=== PATIENT | female | born 1985 | race Caucasian/White ===

== ENCOUNTER 2016-12-06 12:58 | Emergency (ER) | payer OTHER ==
[2016-12-06 13:02] VITALS: BMI 40.3
[2016-12-06 14:12] VITALS: BP 122/74; PULSE 96; TEMP 98.4
[2016-12-06 14:59] LABS: MCH 30.3 pg (25.7-33.7); MCHC 33.6 g/dl (32.0-36.0); MEAN CELL VOLUME 90.1 fl (80-96); MEAN PLT VOLUME 11.3 fl (7.5-11.1); PLATELET COUNT 183 K/MM3 (134-434); RDW 14.6 % (11.6-15.6); WHITE BLOOD COUNT 10.8 K/mm3 (4.0-10.0)
== END 2016-12-06 15:10 | disposition home or self-care (01) ==
LOC: JER 12:58
DX: O26.893 Other specified pregnancy related conditions, third trimester (principal); R10.2 Pelvic and perineal pain; Z3A.33 33 weeks gestation of pregnancy
CPT/HCPCS: 36415; 85027; 99281-25

== ENCOUNTER 2017-01-11 05:00 | Inpatient (IN) | payer OTHER ==
[2017-01-11 06:18] LABS: BASOPHIL 0.2 % (0-2.0); EOSINOPHIL 1.3 % (0-4.5); MCH 29.4 pg (25.7-33.7); MEAN CELL VOLUME 89.2 fl (80-96); MEAN PLT VOLUME 11.6 fl (7.5-11.1); NEUTROPHILS 76.7 % (42.8-82.8); PLATELET COUNT 184 K/MM3 (134-434); RDW 14.4 % (11.6-15.6); WHITE BLOOD COUNT 12.1 K/mm3 (4.0-10.0)
[2017-01-11 06:34] LABS: INR 0.98 (0.82-1.09); PROTHROMBIN TIME (PATIENT) 10.8 SEC (9.98-11.88)
[2017-01-11 06:37] LABS: ACTIVATED PTT 27.3 SECONDS (26.9-34.4)
[2017-01-11 06:40] LABS: CALCIUM 8.9 mg/dL (8.5-10.1); CREATININE 0.5 mg/dL (0.55-1.02)
[2017-01-11] MEDS: DEXTROSE 5%-LACTATED RINGERS 1,000 ML IV SCH (07:00)
[2017-01-11 07:17] LABS: HIV 1 & 2 AB NEGATIVE; HIV 1 AGp24 NEGATIVE
[2017-01-11 07:19] VITALS: BMI 40.3
[2017-01-11] MEDS ORDERED: TUBERCULIN PPD 5 TU/0.1ML SYRINGE (IN PATIENT USE ONLY) ID ONE (08:30)
[2017-01-11] MEDS ORDERED: DINOPROSTONE 10 MG VAGINAL SUPPOSITORY VG ONE (10:43)
--- NOTE | 2017-01-11 10:43 | PN ---
Ante-Partal Exam - Subjective Subjective: Came to evaluate patient and start cervidil induction for Dr. Paul. 31 y/o with SIUP at 40.2 weeks here with SROM. Pt tolerating contractions - rare mild contractions, continues to leak fluid. Vital Signs: Vital Signs Temperature 98.2 F 01/11/17 10:00 Pulse Rate 82 01/11/17 10:00 Respiratory Rate 20 01/11/17 10:00 Blood Pressure 108/51 01/11/17 10:00 O2 Sat by Pulse Oximetry (%) Bleeding: No Headache: No Visual changes: No Right upper quadrant pain: No Pain (scale 1-10): 2 - Contractions Contractions: Yes Regularity: Irregular Intensity: Mild Monitor Mode: External - Exam during Labor Heart Rate: 125 Variability: Moderate Category: I Monitor Accelerations: Present Monitor Decelerations: None Exam: Vaginal Dilatation (cm): 3 Effacement (%): 70 Amniotic Membrane Status: Ruptured Nitrazine Test: Positive Amniotic Fluid: Clear Presentation: Vertex Station: -2 - Assessment/Plan Assessment/Plan: 31 y/o with SROM, for labor augmentation - FHTS cat 1 - cervidil placed at this time, for removal in 12 hours or earlier if goes into active labor - GBS negative
[2017-01-11] MEDS ORDERED: BUTORPHANOL TARTRATE 1 MG/ML VIAL IVPB ONE ×2 (10:44→18:30)
[2017-01-11] MEDS ORDERED: ELECTROLYTE-148 SOLN 500 ML IV ONE (20:30)
--- NOTE | 2017-01-11 20:30 | HP ---
Past Medical History - Admission Chief Complaint: Labor pain History of Present Illness: 31 yo @ 38.6 weeks gestation, EDC 01/19/17, admitted for rupture of membrane. She denies any vaginal bleeding. History Source: Patient Limitations to Obtaining History: No Limitations - Past Medical History ...: 4 ...Para: 2 ...Term: 2 ...Spon : 1 ...LMP: 04/04/16 ... Weeks Gestation by Dates: 40.2 ...EDC by Dates: 01/09/17 ...EDC by Sono: 01/19/17 - Past Surgical History Past Surgical History: Yes: None Hx Myomectomy: No Hx Transabdominal Cerclage: No - Smoking History Smoking history: Never smoked Have you smoked in the past 12 months: No Aproximately how many cigarettes per day: 1 - Alcohol/Substance Use Hx Alcohol Use: No - Social History Usual Living Arrangement: Yes: With Significant Other History of Recent Travel: No Home Medications - Allergies Allergies/Adverse Reactions: Allergies Allergy/AdvReac Type Severity Reaction Status Date / Time ceftriaxone sodium Allergy Severe Hives Verified 01/11/17 05:57 [From Rocephin] nut Allergy Severe Hives Uncoded 01/11/17 05:57 sunflower seeds Allergy Severe Hives Uncoded 01/11/17 05:57 - Home Medications Home Medications: Ambulatory Orders Pnv95/Iron Fum/Folic Acid [ Caplet] 1 each PO DAILY 08/21/16 Family Disease History - Family Disease History Family History: Unremarkable Review of Systems - Review of Systems Constitutional: reports: No Symptoms Eyes: reports: No Symptoms HENT: reports: No Symptoms Neck: reports: No Symptoms Cardiovascular: reports: No Symptoms Respiratory: reports: No Symptoms Gastrointestinal: reports: No Symptoms Genitourinary: reports: Pain Breasts: reports: No Symptoms Reported Musculoskeletal: reports: No Symptoms Integumentary: reports: No Symptoms Neurological: reports: No Symptoms Endocrine: reports: No Symptoms Hematology/Lymphatic: reports: No Symptoms Psychiatric: reports: No Symptoms Pain Intensity: 3 Physical Exam - Maternity Vital Signs: Vital Signs Temperature 98.7 F 01/11/17 18:00 Pulse Rate 71 01/11/17 18:00 Respiratory Rate 18 01/11/17 18:00 Blood Pressure 131/72 01/11/17 18:00 O2 Sat by Pulse Oximetry (%) Constitutional: Yes: Well Nourished Eyes: Yes: Conjunctiva Clear HENT: Yes: Atraumatic Neck: Yes: Supple, Trachea Midline Cardiovascular: Yes: Regular Rate and Rhythm Lungs: Clear to auscultation - Abdominal Exam/OB Number of Fetuses: Single Presentation: Vertex Contractions: Yes Regularity: Irregular Intensity: Mild - Vaginal Exam/OB Vaginal Bleediing: No Dilatation (cm): 3 Effacement (%): 70 Amniotic Membrane Status: Ruptured - Labs Lab Results: CBC, BMP 01/11/17 05:50 01/11/17 05:50 Problem List - Problems (1) Rupture of membranes with clear amniotic fluid Code(s): O42.019 - PRETRM GERARDO ROM, ONSET LABOR W/N 24 HOURS OF RUPT, UNSP TRI Assessment/Plan Spontaneous rupture of membrane Admit to L&D Cervidil induction
--- NOTE | 2017-01-11 20:41 | PN ---
Progress Note (short form) - Note Progress Note: Patient re-evaluated She c/o contractions pain; moderate discomfort. FHR : reactive [place] : + irregular contractions VE : / -2 A/P : Active Labor Epidural anesthesia Consider Pitocin augmentation Anticipate Problem List - Problems (1) Rupture of membranes with clear amniotic fluid Code(s): O42.019 - PRETRM GERARDO ROM, ONSET LABOR W/N 24 HOURS OF RUPT, UNSP TRI
[2017-01-11] MEDS ORDERED: OXYTOCIN 15 UNITS/ LR 250 ML 250 ML IVPB SCH (20:45)
[2017-01-11] MEDS ORDERED: WITCH HAZEL 50% (TUCKS) 40 PAD/JAR PAD TP PRN (21:49)
[2017-01-11] MEDS ORDERED: BENZOCAINE 28 GM HEMORRHOIDAL OINTMENT TP PRN (21:49)
[2017-01-11] MEDS ORDERED: METHYLERGONOVINE MALEATE 0.2 MG/1 ML AMP IM PRN (21:49)
[2017-01-11] MEDS ORDERED: BENZOCAINE 20% 57 GM BOTTLE TP PRN (21:49)
[2017-01-11] MEDS ORDERED: BISACODYL 10 MG SUPP.RECT RC PRN (21:49)
--- NOTE | 2017-01-11 21:59 | PN ---
Delivery - Delivery Vaginal Delivery: Spontaneous Type of Anesthesia: Epidural Episiotomy/Laceration: 1st degree EBL (cc): 300 Delivery, Single - [place] Feeding Plan Initial Plan: Elected not to breastfeed exclusively throughout hospitalization Remarks - Remarks Remarks: Normal spontaneous vaginal delivery of a live infant boy. Nose / Oropharynx suctioned @ perineum. Nuchal cord x 1 cut and clamped Baby handed to nurse. Placenta expelled spontaneously intact. Right labial laceration repaired with 2.0 Biosyn.
[2017-01-11] MEDS ORDERED: D5W-LR W/ 20 UNITS OXYTOCIN 1,000 ML IV SCH (22:00)
--- NOTE | 2017-01-11 22:04 | DS ---
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 Signs: Vital Signs Temperature 98.6 F 01/11/17 20:00 Pulse Rate 80 01/11/17 20:00 Respiratory Rate 18 01/11/17 20:00 Blood Pressure 127/66 01/11/17 20:00 O2 Sat by Pulse Oximetry (%) Constitutional: Yes: Well Nourished Eyes: Yes: Conjunctiva Clear HENT: Yes: Atraumatic Neck: Yes: Supple, Trachea Midline Cardiovascular: Yes: Regular Rate and Rhythm Respiratory: Yes: Regular, CTA Bilaterally Gastrointestinal: Yes: Normal Bowel Sounds Pelvis: Yes: WNL External Genitalia: Yes: Normal Vaginal Exam: Yes: Normal Cervix: Yes: Normal Uterus: Yes: Firm ....Post : Yes: Uterus firm, Large lochia rubra Neurological: Yes: Alert, Oriented ...Motor Strength: WNL Psychiatric: Yes: Alert, Oriented Labs: CBC, BMP 01/11/17 05:50 01/11/17 05:50 Delivery - Delivery Vaginal Delivery: Spontaneous Type of Anesthesia: Epidural Episiotomy/Laceration: 1st degree EBL (cc): 300 Delivery, Single - Feeding Plan Initial Plan: Elected not to breastfeed exclusively throughout hospitalization Discharge Summary Reason For Visit: LABOR Current Active Problems Rupture of membranes with clear amniotic fluid (Acute) Procedures: Principal: Normal spontaneous vaginal delivery Hospital Course: Routine care Condition: Good - Instructions Diet, Activity, Other Instructions: Regular diet No sexual intercourse, no douching x 6 weeks. F/U with MD in 6 weeks Referrals: Ivelisse Paul MD [Staff Physician] - Disposition: HOME - Home Medications Comprehensive Discharge Medication List: Ambulatory Orders Pnv95/Iron Fum/Folic Acid [ Caplet] 1 each PO DAILY 08/21/16
[2017-01-12] MEDS: ACETAMINOPHEN 325 MG TABLET (FP) PO PRN ×3 (02:52→21:53)
[2017-01-12] MEDS: IBUPROFEN 600 MG TABLET (FP) PO PRN ×3 (02:53→21:54)
--- NOTE | 2017-01-12 07:58 | PN ---
Post Progress Note - Subjective Subjective: 31 yo Para 3, status normal spontaneous vaginal delivery, seen and evaluated. Doing well. Type of Delivery: Vital Signs: Vital Signs Temperature 98.1 F 01/12/17 05:45 Pulse Rate 79 01/12/17 05:45 Respiratory Rate 18 01/12/17 05:45 Blood Pressure 121/70 01/12/17 05:45 O2 Sat by Pulse Oximetry (%) 99 01/11/17 21:45 Breast Exam: Yes: Soft Uterus: Yes: Fundus Firm Abdomen/GI: Yes: Abdomen soft, Tolerating PO Lochia: Yes: Rubra Lochia, amount: Moderate Extremities: Yes: Calves non-tender Perineum: Yes: Laceration (healing) Activity: Ambulating - Labs Labs: CBC WBC 12.1 K/mm3 (4.0-10.0) H 01/11/17 05:50 RBC 4.17 M/mm3 (3.60-5.2) 01/11/17 05:50 Hgb 12.3 GM/dL (10.7-15.3) 01/11/17 05:50 Hct 37.2 % (32.4-45.2) 01/11/17 05:50 MCV 89.2 fl (80-96) 01/11/17 05:50 MCHC 33.0 g/dl (32.0-36.0) 01/11/17 05:50 RDW 14.4 % (11.6-15.6) 01/11/17 05:50 Plt Count 184 K/MM3 (134-434) 01/11/17 05:50 MPV 11.6 fl (7.5-11.1) H 01/11/17 05:50 Neutrophils % 76.7 % (42.8-82.8) 01/11/17 05:50 Lymphocytes % 14.8 % (8-40) D 01/11/17 05:50 Monocytes % 7.0 % (3.8-10.2) 01/11/17 05:50 Eosinophils % 1.3 % (0-4.5) 01/11/17 05:50 Basophils % 0.2 % (0-2.0) 01/11/17 05:50 Problem List - Problems (1) Rupture of membranes with clear amniotic fluid Code(s): O42.019 - PRETRM GERARDO ROM, ONSET LABOR W/N 24 HOURS OF RUPT, UNSP TRI (2) Status post normal vaginal delivery Code(s): AGR6527 - Assessment/Plan Status post normal spontaneous vaginal delivery. Stable Continue routine care
[2017-01-12] MEDS: FERROUS SO4 325 MG TABLET (FP) PO SCH ×3 (08:00→17:36)
[2017-01-12 08:25] LABS: BASOPHIL 0.6 % (0-2.0); EOSINOPHIL 0.6 % (0-4.5); MCH 29.5 pg (25.7-33.7); MCHC 32.6 g/dl (32.0-36.0); MEAN CELL VOLUME 90.5 fl (80-96); MEAN PLT VOLUME 11.6 fl (7.5-11.1); NEUTROPHILS 79.6 % (42.8-82.8); PLATELET COUNT 147 K/MM3 (134-434); RDW 14.5 % (11.6-15.6); WHITE BLOOD COUNT 14.4 K/mm3 (4.0-10.0)
[2017-01-12] MEDS ORDERED: PRENATAL VITAMINS W/ FOLIC ACID TABLET (FP) PO SCH (10:00)
[2017-01-12] MEDS ORDERED: DIPHTH,PERTUSS(ACELL),TET 0.5 ML DISP.SYRIN IM ONE (10:00)
[2017-01-12] MEDS: PRENATAL VITAMINS W/ FOLIC ACID TABLET (FP) PO SCH (10:00)
[2017-01-12] MEDS: DEXTROSE 5%-LACTATED RINGERS 1,000 ML IV SCH (11:11)
[2017-01-12] MEDS ORDERED: ELECTROLYTE-148 SOLN 500 ML IV ONE (20:30)
[2017-01-12] MEDS ORDERED: SENNOSIDES/DOCUSATE COMBO (SENNA PLUS) TABLET (UD) PO PRN (22:00)
[2017-01-13] MEDS: FERROUS SO4 325 MG TABLET (FP) PO SCH ×2 (08:39→12:36)
[2017-01-13 09:39] VITALS: BP 126/70; PULSE 68; TEMP 98.1
[2017-01-13] MEDS: PRENATAL VITAMINS W/ FOLIC ACID TABLET (FP) PO SCH (11:18)
== END 2017-01-13 12:45 | disposition home or self-care (01) | DRG 560 ==
LOC: JDEL 05:00 → JLDR 05:20 → J3W 01-12 01:00
PROVIDERS: ADMIT Obstetrics & Gynecology; ATTEND Obstetrics & Gynecology
PROC: 10E0XZZ Delivery of Products of Conception, External Approach (ICD-10-PCS; principal; 2017-01-11)
PROC: 0HQ9XZZ Repair Perineum Skin, External Approach (ICD-10-PCS; 2017-01-11)
DX: O69.81X0 Labor and delivery complicated by cord around neck, without compression, not applicable or unspecified (principal); O70.0 First degree perineal laceration during delivery; Z3A.38 38 weeks gestation of pregnancy; Z37.0 Single live birth
CPT/HCPCS: 36415; 59409; 80048; 85025; 85610; 85730; 86593; 86850; 86900; 86901; 87389; 90715

== ENCOUNTER 2017-07-13 20:50 | Emergency (ER) | payer OTHER ==
[2017-07-13 20:57] VITALS: BP 136/72; PULSE 98; TEMP 98; BMI 41.1
--- NOTE | 2017-07-13 22:39 | PDOC ---
History of Present Illness - General History Source: Patient Exam Limitations: No Limitations - History of Present Illness Initial Comments: 07/13/17 22:48 The patient is a 31 year old female, with a significant past medical history of asthma, depression, anxiety and prediabetes and fibromyalgia, who presents to the emergency department with diarrhea, weakness and dizziness for the past 5 days. She reports that her diarrhea has been more water than feces. She denies any blood in her diarrhea. She reports that she feels as if her abdomen is bloated but does not elicit any pain. She denies any recent travel or sick contacts. She states that she did take a Plan B pill 2 weeks ago. The patient denies chest pain, shortness of breath, headache, fever, chills, nausea, vomit, and constipation. Denies dysuria, frequency, urgency and hematuria. Allergies: Ceftriaxone, nuts, sunflower seeds Past surgical history: Cholecystectomy Social history: No alcohol, tobacco or drug use reported <Noel Steinberg - Last Filed: 07/13/17 22:48> - General History Source: Patient <Noel Rodney - Last Filed: 07/14/17 19:25> - General Chief Complaint: Diarrhea Stated Complaint: DIARRHEA Time Seen by Provider: 07/13/17 22:39 Past History <Noel Steinberg - Last Filed: 07/13/17 22:48> - Past Medical History Asthma: Yes Cancer: No Cardiac Disorders: No COPD: No Diabetes: No HTN: No Psychiatric Problems: Yes (DEPRESSION,ANXIETY) Seizures: No Thyroid Disease: No - Surgical History Abdominal Surgery: Yes (09/2009) Cholecystectomy: Yes (09/2009) - Immunization History Immunization Up to Date: Yes - Suicide/Smoking/Psychosocial Hx Smoking Status: No Smoking History: Never smoked Have you smoked in the past 12 months: No Number of Cigarettes Smoked Daily: 1 Hx Alcohol Use: No Drug/Substance Use Hx: No Substance Use Type: None Hx Substance Use Treatment: No <Noel Rodney - Last Filed: 07/14/17 19:25> - Past Medical History Allergies/Adverse Reactions: Allergies Allergy/AdvReac Type Severity Reaction Status Date / Time ceftriaxone sodium Allergy Severe Hives Verified 07/13/17 20:52 [From Rocephin] nut Allergy Severe Hives Uncoded 07/13/17 20:52 sunflower seeds Allergy Severe Hives Uncoded 07/13/17 20:52 Home Medications: Ambulatory Orders Pnv95/Iron Fum/Folic Acid [ Caplet] 1 each PO DAILY 08/21/16 Levofloxacin [Levaquin -] 500 mg PO DAILY #7 tablet 07/14/17 Metronidazole [Flagyl] 500 mg PO BID #14 tablet 07/14/17 Review of Systems - Review of Systems Able to Perform ROS?: Yes Comments:: 07/13/17 22:48 GENERAL/CONSTITUTIONAL: (+) Weakness. No fever or chills. HEAD, EYES, EARS, NOSE AND THROAT: No change in vision. No ear pain or discharge. No sore throat.- CARDIOVASCULAR: No chest pain or shortness of breath RESPIRATORY: No cough, wheezing, or hemoptysis. GASTROINTESTINAL: (+) Diarrhea, abdominal bloating. No nausea, vomiting, or constipation. GENITOURINARY: No dysuria, frequency, or change in urination. MUSCULOSKELETAL: No joint or muscle swelling or pain. No neck or back pain. SKIN: No rash NEUROLOGIC: (+) Dizziness. No headache, loss of consciousness, or change in strength/sensation. ENDOCRINE: No increased thirst. No abnormal weight change HEMATOLOGIC/LYMPHATIC: No anemia, easy bleeding, or history of blood clots. ALLERGIC/IMMUNOLOGIC: No hives or skin allergy. <Noel Steinberg - Last Filed: 07/13/17 22:48> *Physical Exam - Vital Signs Last Vital Signs Temp Pulse Resp BP Pulse Ox 98.0 F 98 H 20 136/72 99 07/13/17 20:53 07/13/17 20:53 07/13/17 20:53 07/13/17 20:53 07/13/17 20:53 - Physical Exam Comments: 07/13/17 22:48 GENERAL: (+) Obese. Awake, alert, and fully oriented, in no acute distress HEAD: No signs of trauma, normocephalic, atraumatic EYES: PERRLA, EOMI, sclera anicteric, conjunctiva clear ENT: Auricles normal inspection, hearing grossly normal, nares patent, oropharynx clear without exudates. Moist mucosa NECK: Normal ROM, supple, no lymphadenopathy, JVD, or masses LUNGS: No distress, speaks full sentences, clear to auscultation bilaterally HEART: Regular rate and rhythm, normal S1 and S2, no murmurs, rubs or gallops, peripheral pulses normal and equal bilaterally. ABDOMEN: Soft, nontender, normoactive bowel sounds. No guarding, no rebound. No masses EXTREMITIES : Normal inspection, Normal range of motion, no edema. No clubbing or cyanosis. NEUROLOGICAL: Cranial nerves II through XII grossly intact. Normal speech, normal gait, no focal sensorimotor deficits SKIN: Warm, Dry, normal turgor, no rashes or lesions noted. <Noel Steinberg - Last Filed: 07/13/17 22:48> - Vital Signs Last Vital Signs Temp Pulse Resp BP Pulse Ox 98.0 F 98 H 20 136/72 99 07/13/17 20:53 07/13/17 20:53 07/13/17 20:53 07/13/17 20:53 07/13/17 20:53 <Noel Rodney - Last Filed: 07/14/17 19:25> ED Treatment Course - LABORATORY CBC & Chemistry Diagram: 07/13/17 23:10 07/13/17 23:10 <Noel Rodney - Last Filed: 07/14/17 19:25> Medical Decision Making - Medical Decision Making 07/14/17 19:24 Dr. Rodney: The scribe's documentation has been prepared under my direction and personally reviewed by me in its entirery. I confirm that the note above accurately reflects all work, treatment, procedures, and medical decision making performed by me. <Noel Rodney - Last Filed: 07/14/17 19:25> *DC/Admit/Observation/Transfer - Attestations Scribe Attestion: 07/13/17 22:48 Documentation prepared by Noel Steinberg, acting as family practice medical doctor for Noel Rodney MD <Noel Steinberg - Last Filed: 07/13/17 22:48> - Discharge Dispostion Admit: No <Noel Rodney - Last Filed: 07/14/17 19:25> Diagnosis at time of Disposition: Colitis - Discharge Dispostion Disposition: HOME - Prescriptions Prescriptions: Metronidazole [Flagyl] 500 mg PO BID #14 tablet Levofloxacin [Levaquin -] 500 mg PO DAILY #7 tablet - Referrals Referrals: Thea Cramer MD [Primary Care Provider] - Dimas Wade DO [Staff Physician] - - Patient Instructions Printed Discharge Instructions: DI for Colitis Additional Instructions: take medications as directed. Avoid alcohol while taking Flagyl. Follow up with your primary care doctor or the GI doctor given to you as a referral if your symptoms have not improved.
[2017-07-13] MEDS ORDERED: SODIUM CHLORIDE 1,000 ML IV STA (22:40)
[2017-07-13 23:26] LABS: BASOPHIL 0.6 % (0-2.0); EOSINOPHIL 3.4 % (0-4.5); MCHC 33.3 g/dl (32.0-36.0); MEAN CELL VOLUME 87.1 fl (80-96); MEAN PLT VOLUME 10.1 fl (7.5-11.1); NEUTROPHILS 70.4 % (42.8-82.8); PLATELET COUNT 254 K/MM3 (134-434); RDW 14.8 % (11.6-15.6); WHITE BLOOD COUNT 12.9 K/mm3 (4.0-10.0)
[2017-07-13 23:27] LABS: URINE APPEARANCE SLCLOUDY; URINE BILIRUBIN NEGATIVE (NEGATIVE); URINE BLOOD 2+ (NEGATIVE); URINE COLOR DKYELLOW; URINE GLUCOSE (UA) NEGATIVE (NEGATIVE); URINE KETONE NEGATIVE (NEGATIVE); URINE NITRITE NEGATIVE (NEGATIVE); URINE PROTEIN 1+ (NEGATIVE); URINE UROBILINOGEN NEGATIVE mg/dL (0.2-1.0)
[2017-07-13 23:37] LABS: URINE MUCUS MANY; URINE RBC 4 /hpf (0-3); URINE WBC 15 /hpf (3-5)
[2017-07-13 23:48] LABS: INR 1.08 (0.82-1.09); PROTHROMBIN TIME (PATIENT) 12.2 SEC (9.98-11.88)
[2017-07-14 00:09] LABS: ALBUMIN 3.9 g/dl (3.4-5.0); ANION GAP 7 (8-16); BILIRUBIN,TOTAL 0.3 mg/dL (0.2-1.0); CALCIUM 8.5 mg/dL (8.5-10.1); CO2 27 mmol/L (21-32); CREATININE 0.6 mg/dL (0.55-1.02); GLUCOSE,RANDOM 93 mg/dL (74-106); SGPT/ALT 25 U/L (12-78); TOT PROT 8.2 g/dl (6.4-8.2)
[2017-07-14 00:10] LABS: ALK PHOS 103 U/L (45-117)
[2017-07-14 00:13] LABS: MAGNESIUM 1.9 mg/dL (1.8-2.4); SGOT/AST 30 U/L (15-37)
[2017-07-14] MEDS ORDERED: metroNIDAZOLE 250 MG TABLET PO ONE (00:32)
[2017-07-14] MEDS ORDERED: LEVOFLOXACIN 500 MG TABLET (FP) PO ONE (00:32)
[2017-07-14] MEDS ORDERED: LEVOFLOXACIN 500 MG TABLET (FP) ONE (01:11)
[2017-07-14] MEDS ORDERED: metroNIDAZOLE 250 MG TABLET ONE (01:11)
[2017-07-14 13:14] LABS: URINE LEUK ESTERASE Negative (NEGATIVE)
== END 2017-07-14 01:21 | disposition home or self-care (01) ==
LOC: JER 20:50
PROC: 3E0337Z Introduction of Electrolytic and Water Balance Substance into Peripheral Vein, Percutaneous Approach (ICD-10-PCS; principal; 2017-07-13)
DX: K52.9 Noninfective gastroenteritis and colitis, unspecified (principal); J45.909 Unspecified asthma, uncomplicated; R73.03 Prediabetes; F41.8 Other specified anxiety disorders; M79.7 Fibromyalgia; E66.9 Obesity, unspecified; Z68.41 Body mass index [BMI] 40.0-44.9, adult
CPT/HCPCS: 36415; 80053; 81003; 81015; 83690; 83735; 84703; 85025; 85610; 99282-25

== ENCOUNTER 2019-10-09 18:13 | Emergency (ER) | payer OTHER ==
[2019-10-09 18:20] VITALS: BP 118/74; PULSE 94; TEMP 99.3; BMI 41.9
--- NOTE | 2019-10-09 18:20 | PDOC ---
Rapid Medical Evaluation Chief Complaint: Pain, Acute Time Seen by Provider: 10/09/19 18:18 Medical Evaluation: Allergies Allergy/AdvReac Type Severity Reaction Status Date / Time ceftriaxone sodium Allergy Severe Hives Verified 07/13/17 20:52 [From Rocephin] nut Allergy Severe Hives Uncoded 07/13/17 20:52 sunflower seeds Allergy Severe Hives Uncoded 07/13/17 20:52 10/09/19 18:18 Pt c/o: lower abd pain radiating to back since 11am this am, no other complaints , normal menstrual cycles Pt on brief exam: lower abd tenderness, no cva tenderness, vss pt ordered for: urine Pt to proceed to the ED Discharge Disposition - Diagnosis Abdominal pain, UTI (urinary tract infection) - Discharge Dispostion Disposition: HOME Condition at time of disposition: Stable - Prescriptions Prescriptions: Sulfamethoxazole/Trimethoprim [Bactrim Ds -] 1 tab PO BID #10 tablet - Referrals Referrals: ON STAFF,NOT [Non Staff, Medical] - - Patient Instructions Printed Discharge Instructions: Urinary Tract Infection Additional Instructions: Drink plenty of fluids Take ibuprofen every 6 hours as needed for pain Take bactrim as prescribed Follow-up with your primary care doctor as soon as possible. You need to repeat urine test once your antibiotic is completed. We will call you if you're antibiotic needs to be changed. - Post Discharge Activity Work/School Note: Back to Work
[2019-10-09 19:13] LABS: EPI CELLS 3.1 /HPF (0-5/HPF); HYALINE CASTS 6 /lpf (0-8); URINE APPEARANCE CLEAR; URINE BACTERIA 17.9 /hpf (NEGATIVE); URINE BILIRUBIN NEGATIVE (NEGATIVE); URINE COLOR YELLOW; URINE GLUCOSE (UA) NEGATIVE (NEGATIVE); URINE KETONE TRACE (NEGATIVE); URINE LEUK ESTERASE 1+ (NEGATIVE); URINE NITRITE NEGATIVE (NEGATIVE); URINE PROTEIN NEGATIVE (NEGATIVE); URINE RBC 8 /hpf (0-4); URINE WBC 6 /hpf (0-5)
--- NOTE | 2019-10-09 21:42 | PDOC ---
*Physical Exam - Vital Signs Last Vital Signs Temp Pulse Resp BP Pulse Ox 99.3 F 94 H 18 118/74 98 10/09/19 18:18 10/09/19 18:18 10/09/19 18:18 10/09/19 18:18 10/09/19 18:18 ED Treatment Course - LABORATORY CBC & Chemistry Diagram: 10/10/19 00:00 10/10/19 00:00 - ADDITIONAL ORDERS Additional order review: Laboratory Results 10/09/19 10/09/19 18:41 18:41 Urine Color Yellow Urine Appearance Clear Urine pH 6.0 Ur Specific [place] 1.026 Urine Protein Negative Urine Glucose (UA) Negative Urine Ketones Trace H Urine Blood Trace Urine Nitrite Negative Urine Bilirubin Negative Urine Urobilinogen 1.0 Ur Leukocyte Esterase 1+ H Urine WBC (Auto) 6 Urine RBC (Auto) 8 Urine Casts (Auto) 6 U Epithel Cells (Auto) 3.1 Urine Bacteria (Auto) 17.9 Urine HCG, Qual Negative Medical Decision Making - Medical Decision Making 10/09/19 21:42 Patient seen by the advanced practice provider under my direct supervision. Ancillary testing reviewed as necessary. I agree with plan as outlined by the advanced practice provider. Discharge - Discharge Information Problems reviewed: Yes Clinical Impression/Diagnosis: Abdominal pain Qualifiers: Abdominal location: lower abdomen, unspecified Qualified Code(s): R10.30 - Lower abdominal pain, unspecified UTI (urinary tract infection) Qualifiers: Urinary tract infection type: acute cystitis Hematuria presence: without hematuria Qualified Code(s): N30.00 - Acute cystitis without hematuria Condition: Stable Disposition: HOME - Additional Discharge Information Prescriptions: Sulfamethoxazole/Trimethoprim [Bactrim Ds -] 1 tab PO BID #10 tablet - Follow up/Referral Referrals: ON STAFF,NOT [Primary Care Provider] - - Patient Discharge Instructions Patient Printed Discharge Instructions: Urinary Tract Infection Additional Instructions: Drink plenty of fluids Take ibuprofen every 6 hours as needed for pain Take bactrim as prescribed Follow-up with your primary care doctor as soon as possible. You need to repeat urine test once your antibiotic is completed. We will call you if you're antibiotic needs to be changed. - Post Discharge Activity Work/Back to School Note: Back to Work
--- NOTE | 2019-10-09 22:16 | PDOC ---
History of Present Illness - General Chief Complaint: Pain, Acute Stated Complaint: ABD PAIN Time Seen by Provider: 10/09/19 18:18 History Source: Patient - History of Present Illness Initial Comments: 10/09/19 22:54 34-year-old female complaining of lower abdominal pain since this morning. Patient reports some nausea and anorexia since this morning. Denies fever/ chills. Patient also reports dysuria denies vomiting or diarrhea. denies urinary symptoms, vaginal discharge/ vaginal bleeding Past surgical history cholecystectomy 10/10/19 01:45 Past History - Past Medical History Allergies/Adverse Reactions: Allergies Allergy/AdvReac Type Severity Reaction Status Date / Time ceftriaxone sodium Allergy Severe Hives Verified 07/13/17 20:52 [From Rocephin] nut Allergy Severe Hives Uncoded 07/13/17 20:52 sunflower seeds Allergy Severe Hives Uncoded 07/13/17 20:52 Home Medications: Ambulatory Orders Pnv95/Iron Fum/Folic Acid [ Caplet] 1 each PO DAILY 08/21/16 levoFLOXacin [Levaquin -] 500 mg PO DAILY #7 tablet 07/14/17 metroNIDAZOLE [Flagyl] 500 mg PO BID #14 tablet 07/14/17 Sulfamethoxazole/Trimethoprim [Bactrim Ds -] 1 tab PO BID #10 tablet 10/10/19 Asthma: Yes Cancer: No Cardiac Disorders: No COPD: No Diabetes: No HTN: No Psychiatric Problems: Yes (DEPRESSION,ANXIETY) Seizures: No Thyroid Disease: No - Surgical History Abdominal Surgery: Yes (09/2009) Cholecystectomy: Yes (09/2009) - Immunization History Immunization Up to Date: Yes - Psycho Social/Smoking Cessation Hx Smoking Status: No Smoking History: Never smoked Have you smoked in the past 12 months: No Number of Cigarettes Smoked Daily: 1 Information on smoking cessation initiated: No Hx Alcohol Use: No Drug/Substance Use Hx: No Substance Use Type: None Hx Substance Use Treatment: No Review of Systems - Review of Systems Able to Perform ROS?: Yes Is the patient limited Salvadorean proficient: No Constitutional: No: Symptoms Reported, See HPI, Chills, Diaphoresis, Fever, Loss of Appetite, Malaise, Night Sweats, Weakness, Weight Stable, Unintentional Wgt. Loss, Unexplained wgt Loss, Other ABD/GI: Yes: Nausea. No: Symptoms Reported, See HPI, Abdominal Distended, Abd. Pain w/ defecation, Blood Streaked Bowels, Constipated, Diarrhea, Difficulty Swallowing, Poor Appetite, Poor Fluid Intake, Rectal Bleeding, Vomiting, Indigestion, Abdominal cramping, Tarry Stools, Other : No: Symptoms Reported, See HPI, Burning, Dysuria, Discharge, Frequency, Flank Pain, Hematuria, Incontinence, Pain, Urgency, Testicular Mass, Testicular Swelling, Lesions, Testicular Pain, Other *Physical Exam - Vital Signs Last Vital Signs Temp Pulse Resp BP Pulse Ox 99.3 F 94 H 18 118/74 98 10/09/19 18:18 10/09/19 18:18 10/09/19 18:18 10/09/19 18:18 10/09/19 18:18 - Physical Exam General Appearance: Yes: Appropriately Dressed Respiratory/Chest: positive: Lungs Clear, Normal Breath Sounds Cardiovascular: positive: Regular Rhythm, Regular Rate Musculoskeletal: positive: Normal Inspection. negative: CVA Tenderness Extremity: positive: Normal Capillary Refill Integumentary: positive: Normal Color, Dry, Warm Neurologic: positive: Fully Oriented, Alert, Normal Mood/Affect ED Treatment Course - LABORATORY CBC & Chemistry Diagram: 10/10/19 00:00 10/10/19 00:00 - ADDITIONAL ORDERS Additional order review: Laboratory Results 10/09/19 10/09/19 18:41 18:41 Urine Color Yellow Urine Appearance Clear Urine pH 6.0 Ur Specific [place] 1.026 Urine Protein Negative Urine Glucose (UA) Negative Urine Ketones Trace H Urine Blood Trace Urine Nitrite Negative Urine Bilirubin Negative Urine Urobilinogen 1.0 Ur Leukocyte Esterase 1+ H Urine WBC (Auto) 6 Urine RBC (Auto) 8 Urine Casts (Auto) 6 U Epithel Cells (Auto) 3.1 Urine Bacteria (Auto) 17.9 Urine HCG, Qual Negative ED Progress Note - Progress Note Progress Note: 10/10/19 01:59 A: abdominal pain/ pelvic pain P: cbc cmp CTAP: normal appendix TVUS Medical Decision Making - Medical Decision Making 10/10/19 04:14 TVUS: Normal uterus. Normal endometrial thickness measuring 5 mm. There is a 1.4 mm echogenic structure within the endometrium. Uncertain etiology. Could represent a fatty deposit or polyp. Follow-up recommended. Normal right ovary with positive Doppler blood flow. The left ovary could not be visualized. No free fluid. CONFIDENTIALITY Discharge - Discharge Information Problems reviewed: Yes Clinical Impression/Diagnosis: Abdominal pain Qualifiers: Abdominal location: lower abdomen, unspecified Qualified Code(s): R10.30 - Lower abdominal pain, unspecified UTI (urinary tract infection) Qualifiers: Urinary tract infection type: acute cystitis Hematuria presence: without hematuria Qualified Code(s): N30.00 - Acute cystitis without hematuria Condition: Stable Disposition: HOME - Additional Discharge Information Prescriptions: Sulfamethoxazole/Trimethoprim [Bactrim Ds -] 1 tab PO BID #10 tablet - Follow up/Referral Referrals: ON STAFF,NOT [Primary Care Provider] - - Patient Discharge Instructions Patient Printed Discharge Instructions: Urinary Tract Infection Additional Instructions: Drink plenty of fluids Take ibuprofen every 6 hours as needed for pain Take bactrim as prescribed Follow-up with your primary care doctor as soon as possible. You need to repeat urine test once your antibiotic is completed. We will call you if you're antibiotic needs to be changed. - Post Discharge Activity Work/Back to School Note: Back to Work
[2019-10-09] MEDS ORDERED: SODIUM CHLORIDE 1,000 ML IV STA (22:19)
[2019-10-09] MEDS ORDERED: ONDANSETRON 4 MG/2 ML VIAL IVPUSH ONE (22:30)
[2019-10-10 00:21] LABS: BASO % 0.7 % (0-2.0); EOS % 1.3 % (0-4.5); HEMATOCRIT 41.2 % (32.4-45.2); HEMOGLOBIN 13.6 GM/dL (10.7-15.3); LYMPH % 18.4 % (8-40); MCH 29.1 pg (25.7-33.7); MEAN CELL VOLUME 88.3 fl (80-96); MEAN PLT VOLUME 10.6 fl (7.5-11.1); MONO % 6.5 % (3.8-10.2); NEUT % 73.1 % (42.8-82.8); PLATELET COUNT 262 K/MM3 (134-434); RBC 4.66 M/mm3 (3.60-5.2); RDW 14.5 % (11.6-15.6); WHITE BLOOD COUNT 14.4 K/mm3 (4.0-10.0)
[2019-10-10 00:45] LABS: BILIRUBIN,TOTAL 0.5 mg/dL (0.2-1); BLOOD UREA NITROGEN 6.5 mg/dL (7-18); CALCIUM 9.2 mg/dL (8.5-10.1); CREATININE 0.8 mg/dL (0.55-1.3); TOT PROT 8.3 g/dl (6.4-8.2)
[2019-10-10] MEDS ORDERED: ONDANSETRON 4 MG/2 ML VIAL ONE (01:05)
[2019-10-10] MEDS ORDERED: KETOROLAC TROMETHAMINE 30 MG/1 ML VIAL IVPUSH ONE (01:45)
[2019-10-10] MEDS ORDERED: KETOROLAC TROMETHAMINE 30 MG/1 ML VIAL ONE (02:56)
== END 2019-10-10 04:43 | disposition home or self-care (01) ==
LOC: JER 18:13
PROC: 3E0337Z Introduction of Electrolytic and Water Balance Substance into Peripheral Vein, Percutaneous Approach (ICD-10-PCS; principal; 2019-10-09)
PROC: 3E033GC Introduction of Other Therapeutic Substance into Peripheral Vein, Percutaneous Approach (ICD-10-PCS; 2019-10-09)
PROC: 3E0333Z Introduction of Anti-inflammatory into Peripheral Vein, Percutaneous Approach (ICD-10-PCS; 2019-10-09)
DX: N30.00 Acute cystitis without hematuria (principal); J45.909 Unspecified asthma, uncomplicated; F41.9 Anxiety disorder, unspecified; F32.9 Major depressive disorder, single episode, unspecified; Z90.49 Acquired absence of other specified parts of digestive tract
CPT/HCPCS: 36415; 74177-TC; 76830-TC; 80053; 81003; 83690; 84703; 85025; 87086; 96361; 96374; 96375; 99284-25; J7030